=== PATIENT | female | born 1995 | race Caucasian/White ===

== ENCOUNTER 2020-09-12 09:53 | Emergency (ER) | payer BC, OTHER ==
[~2020-09-12] VITALS: Ht 162.6 cm; Wt 86.2 kg
[2020-09-12 12:26] VITALS: BP 136/89
== END 2020-09-12 12:27 | disposition home or self-care (01) ==
LOC: ER 09:53
DX: S93.401A Sprain of unspecified ligament of right ankle, initial encounter (principal); W01.0XXA Fall on same level from slipping, tripping and stumbling without subsequent striking against object, initial encounter; Y93.89 Activity, other specified; Y92.89 Other specified places as the place of occurrence of the external cause; Y99.8 Other external cause status
CPT/HCPCS: 73610

== ENCOUNTER 2023-10-05 18:02 | Emergency (ER) | payer BC, OTHER ==
[~2023-10-05] VITALS: Ht 162.6 cm; Wt 84.0 kg
[2023-10-05 20:03] LABS: Urine Bacteria None Seen /hpf (None Seen); Urine WBC None Seen /hpf (0 - 5)
[2023-10-05 20:29] LABS: Urine Blood Negative /uL (Negative); Urine Clarity Clear (Clear); Urine Color Light-Yellow (Yellow); Urine Protein, UAD Negative (Negative); Urine Specific Gravity 1.012 (1.001-1.035); Urine Urobilinogen Normal (Negative)
[2023-10-05 22:11] VITALS: BP 135/89; PULSE 84; RESP 18; TEMP 99.3; O2SAT 100
== END 2023-10-05 22:11 | disposition home or self-care (01) ==
LOC: ER 18:02
DX: O20.0 Threatened abortion (principal); R10.2 Pelvic and perineal pain; Z3A.01 Less than 8 weeks gestation of pregnancy
CPT/HCPCS: 36415; 76801; 76817; 81001; 84702